=== PATIENT | female | born 1985 | race Caucasian/White ===

== ENCOUNTER 2018-04-26 07:02 | Emergency (ER) | payer OTHER ==
[2018-04-26 07:16] VITALS: BP 133/76
--- NOTE | 2018-04-26 07:40 | UC ---
Respiratory Complaint HPI - HPI Summary HPI Summary: patient complains of postnasal discharge with discoloration, sinus pressure and nasal congestion for almost 3 weeks. She denies chills or fever. Denies history of asthma or exposure to smoke. Patient has history of possible psoriatic arthritis and is in the process of a more accurate diagnosis. Also states arthritis has affected her left eye but for several days it has become more red and started having discharge. - History of Current Complaint Chief Complaint: UCGeneralIllness Stated Complaint: SINUS CONCERN Time Seen by Provider: 04/26/18 07:28 Hx Obtained From: Patient Hx Last Menstrual Period: 04/19/18 ?: No Onset/Duration: Gradual Onset, Lasting Weeks Severity Initially: Mild Severity Currently: Moderate Pain Intensity: 5 Alleviating Factors: Nothing Associated Signs And Symptoms: Positive: Negative - Risk Factors Pulmonary Embolism Risk Factors: Negative Cardiac Risk Factors: Negative Pseudomonas Risk Factors: Negative Tuberculosis Risk Factors: Negative - Allergies/Home Medications Allergies/Adverse Reactions: Allergies Allergy/AdvReac Type Severity Reaction Status Date / Time No Known Allergies Allergy Verified 04/26/18 07:15 Home Medications: Home Medications Chlorphen/Pseudoeph/Ibuprofen [Advil Allergy Sinus Caplet] 1 each PO Q6HR PRN [History Confirmed 04/26/18] PMH/Surg Hx/FS Hx/Imm Hx Previously Healthy: Yes Endocrine History: Other - arthritis Other Endocrine History: arthritis - Surgical History Surgical History: None - Family History Known Family History: Positive: None - Social History Alcohol Use: Occasionally Substance Use Type: None Smoking Status (MU): Never Smoked Tobacco Review of Systems Constitutional: Negative ENT: Nasal Discharge, Sinus Congestion Respiratory: Negative Cardiovascular: Negative Gastrointestinal: Negative Genitourinary: Negative All Other Systems Reviewed And Are Negative: Yes Physical Exam Triage Information Reviewed: Yes Appearance: Well-Appearing, No Pain Distress, Well-Nourished Vital Signs: Initial Vital Signs Temp 98.2 F 04/26/18 07:12 Pulse 69 04/26/18 07:12 Resp 14 04/26/18 07:12 BP 133/76 04/26/18 07:12 Pulse Ox 100 04/26/18 07:12 Vital Signs Reviewed: Yes Eyes: Positive: Conjunctiva Inflamed - left eye with discharge on eyelashes ENT: Positive: Hearing grossly normal, Pharynx normal, TMs normal, Sinus tenderness - maxillary b/l Neck: Positive: Supple, Nontender, No Lymphadenopathy Respiratory: Positive: Chest non-tender, Lungs clear, Normal breath sounds, No respiratory distress Cardiovascular: Positive: RRR, No Murmur, Pulses Normal, Brisk Capillary Refill UC Diagnostic Evaluation - Laboratory O2 Sat by Pulse Oximetry: 100 Respiratory Course/Dx - Course Course Of Treatment: Acute sinusitis. Start augmentin as prescribed, continue PO fluids and nasal toileting with normal saline. Conjunctivitis, polytrim was prescribed. f/u PCP - Differential Dx/Diagnosis Provider Diagnoses: left conjunctivitis. Acute sinusitis Discharge - Sign-Out/Discharge Documenting (check all that apply): Patient Departure All imaging exams completed and their final reports reviewed: No Studies - Discharge Plan Condition: Stable Disposition: HOME Prescriptions: Amoxicillin/Clavulanate TAB* [Augmentin TAB 875*] 875 mg PO BID 10 Days #20 tab Polymyx/Trimethoprim OPTH* [Polytrim OPHTH*] 1 drop RIGHT EYE Q3H 5 Days #1 btl Patient Education Materials: Amoxicillin/Clavulanate Potassium (By mouth), Polymyxin B/Trimethoprim (Into the eye), Sinusitis (ED), Conjunctivitis (ED) Referrals: No Primary Care Phys,NOPCP [Primary Care Provider] - [facility] [place] - Billing Disposition and Condition Condition: STABLE Disposition: Home
== END 2018-04-26 07:41 | disposition home or self-care (01) ==
LOC: UCCORT 07:02
DX: H10.9 Unspecified conjunctivitis (principal); J01.90 Acute sinusitis, unspecified
CPT/HCPCS: 99202; G0463